=== PATIENT | female | born 1930 | race Caucasian/White ===

== ENCOUNTER 2017-02-01 18:02 | Inpatient (IN) | payer OTHER ==
[~2017-02-01] VITALS: Ht 165.1 cm; Wt 83.9 kg
[~2017-02-01 18:02] MED LIST: ATIVAN2 MG PO; CALCIUM CARB1 TABLET PO; Calcium Carbonate/Vi PO; DONEPEZIL HCL5 MG PO; GLUCOPHAGE500 MG PO; Glucophage PO; LEVOTHYROXINE100 MCG PO; LEXAPRO10 MG PO; LORAZEPAM2 MG PO; Levothroid,Synthroid PO; NAMENDA10 MG PO; NEXIUM40 MG PO; OYST-CAL D, OS500 M1 PO; PANTOPRAZOLE SO40 MG PO; PLAVIX75 MG PO; SYNTHROID100 MCG PO; SYNTHROID112 MCG PO; Tylenol Regular Stre PO; Xanax PO; Zocor PO
[2017-02-01 18:23] LABS: EOSINOPHIL (%) 0 % (0-5); HEMATOCRIT 33.9 % (36.0-46.0); IMMATURE GRANULOCYTE (%) 0.5 % (0.0-0.7); IMMATURE GRANULOCYTE COUNT 0.1 K/uL; INSTRUMENT ABS NEUTROPHIL CT 19.6 K/uL; LYMPHOCYTE COUNT 1.4 K/uL (1.0-2.8); MCH 32.3 PG (29.0-34.0); MCHC 33.9 G/DL (30.0-36.0); MCV 95.2 FL (83-99); MEAN PLAT.VOLUME 11.6 uM^3 (9.5-12.4); MONOCYTE (%) 3.6 % (3-12); MONOCYTE COUNT 0.8 K/uL (0-0.8); NEUTROPHIL (%) 89.6 % (45-76); NEUTROPHIL COUNT 19.6 K/uL (1.8-6.4); PLATELET COUNT 209 K/uL (156-360); RBC DIS.WIDTH-SD 42.2 % (39-53); RED BLOOD COUNT 3.56 M/uL (3.80-5.20); WHITE BLOOD COUNT 21.9 K/uL (4.1-10.2)
[2017-02-01 18:31] LABS: AMYLASE 44 IU/L (1-118); CHLORIDE 107 mEq/L (99-109); POTASSIUM 4.6 mEq/L (3.7-5.4); SODIUM 140 mEq/L (136-147)
[2017-02-01 18:33] LABS: GLUCOSE 306 mg/dL (70-99)
[2017-02-01 18:34] LABS: ANION GAP 11 MEQ/L (2-14)
[2017-02-01 18:36] LABS: SERUM ETHYL ALCOHOL < 10 mg/dL
[2017-02-01 18:37] LABS: GFR ESTIMATE (CALCULATED) 41 mL/min/
[2017-02-01 18:38] LABS: UREA NITROGEN (BUN) 59 mg/dL (9-23)
[2017-02-01 18:40] LABS: LIPASE 16 U/L (1.0-51.0)
[2017-02-01 19:42] LABS: ADD MIUA? YES; BILIRUBIN NEGATIVE; BLOOD LARGE; COLOR YELLOW ((YELLOW)); GLUCOSE (STRIP) >=500; KETONES 20; LEUKOCYTES NEGATIVE; NITRITE NEGATIVE; PROTEIN (STRIP) NEGATIVE; SPECIFIC GRAVITY 1.024 (1.000-1.030); UROBILINOGEN 0.2 MG/DL (0.2-1.0)
[2017-02-01 19:46] LABS: BACTERIA NONE SEEN /HPF; EPITHELIAL CELLS RARE /HPF; MUCUS TRACE /LPF; RED BLOOD CELLS 0-5 /HPF (0-5); UCUL ADDED? NO; WHITE BLOOD CELLS 0-5 /HPF (0-5)
[2017-02-01 19:46] LABS: CK-MB 3.1 ng/mL (0.0-4.9)
[2017-02-01 19:49] LABS: CREATINE KINASE 63 IU/L (1-294); TOTAL CK 63 IU/L (1-294)
[2017-02-01 19:57] LABS: AMPHETAMINE NEGATIVE (500 ng/mL); BARBITURATES NEGATIVE (200 ng/mL); BENZODIAZEPINES NEGATIVE (150 ng/mL); COCAINE NEGATIVE (150 ng/mL); METHADONE NEGATIVE (200 ng/mL); METHAMPHETAMINE NEGATIVE (500 ng/mL); OPIATES (MORPHINE) NEGATIVE (100 ng/mL); OXYCODONE NEGATIVE (100 ng/mL); PHENCYCLIDINE NEGATIVE (25 ng/mL); PROPOXYPHENE NEGATIVE (300 ng/mL); THC CANNABINOIDS NEGATIVE (50 ng/mL); TRICYCLIC ANTIDEPRESSANTS NEGATIVE (300 ng/mL)
[2017-02-01 19:58] LABS: INTERNAL CONTROLS VALID? YES
[2017-02-01 20:35] LABS: INTER. NORMALIZED RATIO 1.2; PROTHROMBIN TIME 12.9 SEC (10.2-12.9)
[2017-02-01 20:38] LABS: PTT 28.8 SEC (25-37)
[2017-02-01] MEDS ORDERED: IRON325 M1 PO (21:21)
[2017-02-01] MEDS ORDERED: TRAMADOL HCL50 MG PO (21:22)
[2017-02-01] MEDS ORDERED: LEVEMIR FL100 UNIT/1 SC (21:23)
[2017-02-01] MEDS ORDERED: AMARYL4 MG PO (21:23)
[2017-02-01 23:03] LABS: HEMATOCRIT 31.9 % (36.0-46.0); MCV 94.7 FL (83-99)
[2017-02-01 23:21] LABS: TROP-I INTERPRETATION NEGATIVE; TROPONIN-I 0.01 ng/mL (0.0-0.30)
[2017-02-02] VITALS (8 sets, daily range): BP systolic 110–129; BP diastolic 53–60
[2017-02-02 00:39] LABS: POINT-OF-CARE METER ID UU14117124
[2017-02-02 06:48] LABS: POINT-OF-CARE METER ID UU14188577
[2017-02-02 07:06] LABS: HEMATOCRIT 31.3 % (36.0-46.0); MCH 32.1 PG (29.0-34.0); MCHC 32.9 G/DL (30.0-36.0); MCV 97.5 FL (83-99); MEAN PLAT.VOLUME 11.8 uM^3 (9.5-12.4); PLATELET COUNT 194 K/uL (156-360); RBC DIS.WIDTH-CV 12.4 % (11.8-14.6); RBC DIS.WIDTH-SD 43.6 % (39-53); RED BLOOD COUNT 3.21 M/uL (3.80-5.20); WHITE BLOOD COUNT 15.6 K/uL (4.1-10.2)
[2017-02-02 07:28] LABS: ALKALINE PHOSPHATASE 38 IU/L (3-129); ANION GAP 5 MEQ/L (2-14); CHLORIDE 106 MEQ/L (99-109); GFR ESTIMATE (CALCULATED) 41 mL/min/; GLUCOSE 190 mg/dL (70-99); IRON 59 MCG/DL (35-150); POTASSIUM 4.1 MEQ/L (3.7-5.4); SAMPLE HEMOLYSIS CHECK 0; SAMPLE ICTERIC CHECK 0; SAMPLE LIPEMIA CHECK 0; SODIUM 143 MEQ/L (136-147); TOTAL BILIRUBIN 0.4 MG/DL (0.0-1.0); TROP-I INTERPRETATION NEGATIVE; TROPONIN-I 0.07 ng/mL (0.0-0.30); UREA NITROGEN (BUN) 51 mg/dL (9-23)
[2017-02-02 07:41] LABS: Estimated Average Glucose 189 mg/dL (70-123); HEMOGLOBIN A1c (GLYCOHEMOGLOB) 8.2 % HGB (Below 5.7)
[2017-02-02 08:05] LABS: FERRITIN 64 NG/ML (10-291)
[2017-02-02 11:07] LABS: POINT-OF-CARE METER ID UU14188577
[2017-02-02 16:01] LABS: POINT-OF-CARE METER ID UU14188577
[2017-02-03 00:10] LABS: TROP-I INTERPRETATION NEGATIVE; TROPONIN-I 0.03 ng/mL (0.0-0.30)
[2017-02-03 03:29] VITALS: BP 135/60
[2017-02-03 06:31] LABS: POINT-OF-CARE METER ID UU14117124
[2017-02-03 07:01] LABS: BASOPHIL COUNT 0.1 K/uL (0-0.1); EOSINOPHIL (%) 1.3 % (0-5); EOSINOPHIL COUNT 0.1 K/uL (0-0.3); HEMATOCRIT 29.6 % (36.0-46.0); IMMATURE GRANULOCYTE (%) 0.9 % (0.0-0.7); IMMATURE GRANULOCYTE COUNT 0.1 K/uL; LYMPHOCYTE COUNT 2.1 K/uL (1.0-2.8); MCH 33.1 PG (29.0-34.0); MCHC 33.4 G/DL (30.0-36.0); MEAN PLAT.VOLUME 12.2 uM^3 (9.5-12.4); MONOCYTE (%) 8.3 % (3-12); MONOCYTE COUNT 0.9 K/uL (0-0.8); NEUTROPHIL (%) 67.9 % (45-76); PLATELET COUNT 184 K/uL (156-360); RBC DIS.WIDTH-CV 12.6 % (11.8-14.6); RBC DIS.WIDTH-SD 45.3 % (39-53); RED BLOOD COUNT 2.99 M/uL (3.80-5.20); WHITE BLOOD COUNT 10.3 K/uL (4.1-10.2)
[2017-02-03 07:26] LABS: ANION GAP 4 MEQ/L (2-14); CHLORIDE 107 MEQ/L (99-109); GFR ESTIMATE (CALCULATED) 50 mL/min/; SAMPLE HEMOLYSIS CHECK 0; SAMPLE ICTERIC CHECK 0; SAMPLE LIPEMIA CHECK 0; SODIUM 143 MEQ/L (136-147); UREA NITROGEN (BUN) 35 mg/dL (9-23)
[2017-02-03 07:28] LABS: GLUCOSE 103 mg/dL (70-99)
[2017-02-03 07:54] VITALS: BP 132/61
[2017-02-03 11:47] VITALS: BP 133/62
[2017-02-03 16:40] VITALS: BP 135/61
[2017-02-03 19:42] VITALS: BP 133/61
[2017-02-03 20:19] LABS: POINT-OF-CARE METER ID UU14117124
[2017-02-03 21:51] LABS: POINT-OF-CARE METER ID UU13113675
[2017-02-03 22:46] VITALS: BP 161/73
[2017-02-04 03:21] VITALS: BP 123/60
[2017-02-04 06:53] LABS: POINT-OF-CARE METER ID UU14188577
[2017-02-04 08:11] VITALS: BP 116/80
[2017-02-04 12:29] LABS: POINT-OF-CARE METER ID UU14208753
[2017-02-04 16:04] VITALS: BP 116/56
[2017-02-04 20:00] VITALS: BP 141/63
[2017-02-04 21:43] LABS: POINT-OF-CARE METER ID UU14208753
[2017-02-04 23:51] VITALS: BP 130/66
[2017-02-05 04:11] VITALS: BP 142/73
[2017-02-05 06:36] LABS: POINT-OF-CARE METER ID UU14117124
[2017-02-05 07:33] LABS: HEMATOCRIT 30.7 % (36.0-46.0); MCH 33.2 PG (29.0-34.0); MCHC 34.5 G/DL (30.0-36.0); MCV 96.2 FL (83-99); MEAN PLAT.VOLUME 12.4 uM^3 (9.5-12.4); NRBC (%) 0.2 /100 WBC (0-0); PLATELET COUNT 190 K/uL (156-360); RBC DIS.WIDTH-CV 12.7 % (11.8-14.6); RBC DIS.WIDTH-SD 43.5 % (39-53); RED BLOOD COUNT 3.19 M/uL (3.80-5.20); WHITE BLOOD COUNT 8.9 K/uL (4.1-10.2)
[2017-02-05 07:49] LABS: ANION GAP 8 MEQ/L (2-14); CHLORIDE 106 MEQ/L (99-109); POTASSIUM 4.1 MEQ/L (3.7-5.4); SAMPLE HEMOLYSIS CHECK 0; SAMPLE ICTERIC CHECK 0; SAMPLE LIPEMIA CHECK 0; SODIUM 142 MEQ/L (136-147)
[2017-02-05 07:55] LABS: GFR ESTIMATE (CALCULATED) 56 mL/min/; GLUCOSE 208 mg/dL (70-99); UREA NITROGEN (BUN) 16 mg/dL (9-23)
[2017-02-05 08:20] VITALS: BP 139/63
[2017-02-05 12:18] LABS: POINT-OF-CARE METER ID UU14117124
[2017-02-05 12:31] VITALS: BP 166/72
[2017-02-05] MEDS ORDERED: PROTONIX40 MG PO (13:24)
[2017-02-05] MEDS ORDERED: TRAMADOL HCL50 MG PO (13:36)
[2017-02-05] MEDS ORDERED: ENDOCET 5-3251 EACH PO (13:36)
[2017-02-05] MEDS ORDERED: ASPIRIN325 MG PO (13:40)
== END 2017-02-05 16:15 | DRG 493 ==
LOC: TRA 18:02 → 3EAST 21:54 → EDOF 21:54 → ENRESERV 21:55 → 3EAST 23:44
PROVIDERS: Emergency Medicine; Hospitalist; Internal Medicine; Student in an Organized Health Care Education/Training Program
PROC: 0QSK04Z Reposition Left Fibula with Internal Fixation Device, Open Approach (ICD-10-PCS; principal; 2017-02-03)
DX: S82.842A Displaced bimalleolar fracture of left lower leg, initial encounter for closed fracture (principal); N17.9 Acute kidney failure, unspecified; F33.9 Major depressive disorder, recurrent, unspecified; K92.2 Gastrointestinal hemorrhage, unspecified; M84.48XA Pathological fracture, other site, initial encounter for fracture; F05 Delirium due to known physiological condition; N18.3 Chronic kidney disease, stage 3 (moderate); W01.0XXA Fall on same level from slipping, tripping and stumbling without subsequent striking against object, initial encounter; F03.90 Unspecified dementia, unspecified severity, without behavioral disturbance, psychotic disturbance, mood disturbance, and anxiety; I50.9 Heart failure, unspecified; F41.8 Other specified anxiety disorders; E11.22 Type 2 diabetes mellitus with diabetic chronic kidney disease; I65.21 Occlusion and stenosis of right carotid artery; E03.9 Hypothyroidism, unspecified; E27.8 Other specified disorders of adrenal gland; K11.8 Other diseases of salivary glands; D64.9 Anemia, unspecified; K57.30 Diverticulosis of large intestine without perforation or abscess without bleeding; E86.0 Dehydration; S99.912A Unspecified injury of left ankle, initial encounter; E66.9 Obesity, unspecified; Z68.30 Body mass index [BMI] 30.0-30.9, adult; Y92.019 Unspecified place in single-family (private) house as the place of occurrence of the external cause; Z79.02 Long term (current) use of antithrombotics/antiplatelets; Z88.5 Allergy status to narcotic agent; Z79.82 Long term (current) use of aspirin; Z79.4 Long term (current) use of insulin; Z86.73 Personal history of transient ischemic attack (TIA), and cerebral infarction without residual deficits; Z87.891 Personal history of nicotine dependence; Z87.11 Personal history of peptic ulcer disease; Z88.0 Allergy status to penicillin
CPT/HCPCS: 70450; 70551; 71010; 71260; 72125; 73600; 74177; 76000; 80048; 80048 91; 80053; 81003; 82150; 82272; 82550; 82553; 82565; 82728; 82948; 83036; 83540; 83605; 83630; 83690; 84466; 84484; 84520; 85014; 85018; 85025; 85025 91; 85027; 85610; 85730; 86850; 86900; 86901; 87177; 87493; 90686; 93005; 93306; 93880; 94799; 97530 GP; 99281; 99285; C1713; C9113; G0008; G0480; J0690; J1815; J2270; J2405; J3010; J7030; J7042; S0020; S0028

== ENCOUNTER 2017-12-18 15:20 | Inpatient (IN) | payer OTHER ==
[~2017-12-18] VITALS: Ht 165.1 cm; Wt 83.1 kg
[~2017-12-18 15:20] MED LIST changes: +AMARYL4 MG PO; +ASPIRIN325 MG PO; +CALCIUM 600 +1 EAC4 PO; +ENDOCET 5-3251 EACH PO; +IRON325 M1 PO; +LEVEMIR FL100 UNIT/1 SC; -OYST-CAL D, OS500 M1 PO; +PROTONIX40 MG PO; +TRAMADOL HCL50 MG PO
[2017-12-18 16:36] LABS: BASOPHIL (%) 0.2 % (0-1); EOSINOPHIL (%) 0 % (0-5); HEMATOCRIT 31.8 % (36.0-46.0); HEMOGLOBIN 10.7 G/DL (11.9-15.5); IMMATURE GRANULOCYTE (%) 0.6 % (0.0-0.7); LYMPHOCYTE (%) 7.6 % (15-42); LYMPHOCYTE COUNT 0.9 K/uL (1.0-2.8); MCH 31.4 PG (29.0-34.0); MCHC 33.6 G/DL (30.0-36.0); MCV 93.3 FL (83-99); MONOCYTE (%) 2.5 % (3-12); MONOCYTE COUNT 0.3 K/uL (0-0.8); NEUTROPHIL (%) 89.1 % (45-76); PLATELET COUNT 264 K/uL (156-360); RBC DIS.WIDTH-CV 12.4 % (11.8-14.6); RBC DIS.WIDTH-SD 42.1 % (39-53); RED BLOOD COUNT 3.41 M/uL (3.80-5.20); WHITE BLOOD COUNT 12.4 K/uL (4.1-10.2)
[2017-12-18 16:51] LABS: ALBUMIN 3.1 g/dL (3.2-4.8); CHLORIDE 103 mEq/L (99-109); POTASSIUM 4.5 mEq/L (3.7-5.4); SODIUM 137 mEq/L (136-147)
[2017-12-18 16:53] LABS: GLUCOSE 364 mg/dL (70-99); TOTAL PROTEIN 5.4 g/dL (6.4-8.3)
[2017-12-18 16:55] LABS: TOTAL BILIRUBIN 0.4 mg/dL (0.0-1.0)
[2017-12-18 16:57] LABS: ALKALINE PHOSPHATASE 55 IU/L (3-129); CREATININE 1.3 mg/dL (0.6-1.3); GFR ESTIMATE (CALCULATED) 41 mL/min/
[2017-12-18 16:58] LABS: UREA NITROGEN (BUN) 85 mg/dL (9-23)
[2017-12-18 16:59] LABS: AST (GOT) 13 IU/L (2-34)
[2017-12-18 17:00] LABS: ALT (GPT) 11 IU/L (3-49)
[2017-12-18 18:49] LABS: APPEARANCE CLEAR ((CLEAR)); BILIRUBIN NEGATIVE; BLOOD LARGE; COLOR STRAW ((YELLOW)); GLUCOSE (STRIP) >=500; KETONES 20; LEUKOCYTES LARGE; NITRITE NEGATIVE; PROTEIN (STRIP) NEGATIVE; SPECIFIC GRAVITY 1.018 (1.000-1.030); UROBILINOGEN 0.2 MG/DL (0.2-1.0)
[2017-12-18 19:01] LABS: BACTERIA 2+ /HPF; EPITHELIAL CELLS 1+ /HPF; MUCUS NONE SEEN /LPF; RED BLOOD CELLS 0-5 /HPF (0-5); UCUL ADDED? YES; WHITE BLOOD CELLS TNTC /HPF (0-5)
[2017-12-18 20:15] VITALS: BP 143/69
[2017-12-18] MEDS ORDERED: ERYTHROMYC1 APPLICAT LEFT EYE (20:18)
[2017-12-18] MEDS ORDERED: DONEPEZIL HCL10 MG PO (20:19)
[2017-12-18] MEDS ORDERED: GLIMEPIRIDE4 MG PO (20:20)
[2017-12-18] MEDS ORDERED: ESCITALOPRAM OX10 MG PO (20:20)
[2017-12-18] MEDS ORDERED: CLOPIDOGREL75 MG PO (20:20)
[2017-12-18] MEDS ORDERED: MEMANTINE HCL10 MG PO (20:20)
[2017-12-18 23:48] VITALS: BP 145/64
[2017-12-19 01:01] LABS: HEMATOCRIT 26.7 % (36.0-46.0); HEMOGLOBIN 9.2 G/DL (11.9-15.5); MCV 92.4 FL (83-99)
[2017-12-19 03:48] VITALS: BP 110/63
[2017-12-19 04:18] LABS: HEMATOCRIT 27.2 % (36.0-46.0); HEMOGLOBIN 9.3 G/DL (11.9-15.5); MCV 93.2 FL (83-99)
[2017-12-19 06:00] LABS: HEMATOCRIT 28.8 % (36.0-46.0); HEMOGLOBIN 9.5 G/DL (11.9-15.5); MCV 95.4 FL (83-99)
[2017-12-19 06:22] LABS: CHLORIDE 107 MEQ/L (99-109); CREATININE 1.1 MG/DL (0.6-1.3); GFR ESTIMATE (CALCULATED) 50 mL/min/; SODIUM 141 MEQ/L (136-147); UREA NITROGEN (BUN) 54 mg/dL (9-23)
[2017-12-19 06:23] LABS: GLUCOSE 169 mg/dL (70-99); POTASSIUM 3.5 MEQ/L (3.7-5.4)
[2017-12-19 07:01] VITALS: BP 131/60
[2017-12-19 11:34] VITALS: BP 118/58
[2017-12-19 12:46] LABS: HEMATOCRIT 28.5 % (36.0-46.0); HEMOGLOBIN 9.4 G/DL (11.9-15.5); MCV 95.3 FL (83-99)
[2017-12-19 16:04] VITALS: BP 121/72
[2017-12-19 19:59] VITALS: BP 127/64
[2017-12-19 20:10] LABS: HEMATOCRIT 27.5 % (36.0-46.0); HEMOGLOBIN 9.2 G/DL (11.9-15.5); MCV 95.2 FL (83-99)
[2017-12-19 23:56] VITALS: BP 126/59
[2017-12-20] VITALS (9 sets, daily range): BP systolic 118–169; BP diastolic 56–71
[2017-12-20 05:53] LABS: HEMATOCRIT 26.7 % (36.0-46.0); HEMOGLOBIN 8.8 G/DL (11.9-15.5); MCH 31.4 PG (29.0-34.0); MCV 95.4 FL (83-99); PLATELET COUNT 210 K/uL (156-360); RBC DIS.WIDTH-CV 12.5 % (11.8-14.6); RBC DIS.WIDTH-SD 43.2 % (39-53); WHITE BLOOD COUNT 9.7 K/uL (4.1-10.2)
[2017-12-21] VITALS: BP 148/67
[2017-12-21 06:19] LABS: HEMATOCRIT 36.7 % (36.0-46.0); MCH 30.4 PG (29.0-34.0); MCV 92.2 FL (83-99); PLATELET COUNT 219 K/uL (156-360); RBC DIS.WIDTH-CV 13.7 % (11.8-14.6); RBC DIS.WIDTH-SD 46.1 % (39-53); WHITE BLOOD COUNT 8.3 K/uL (4.1-10.2)
[2017-12-21 06:21] LABS: HEMOGLOBIN 12.1 G/DL (11.9-15.5); RED BLOOD COUNT 3.98 M/uL (3.80-5.20)
[2017-12-21 06:39] LABS: CHLORIDE 110 MEQ/L (99-109); GFR ESTIMATE (CALCULATED) 56 mL/min/; POTASSIUM 4.1 MEQ/L (3.7-5.4); SODIUM 146 MEQ/L (136-147)
[2017-12-21 06:50] LABS: GLUCOSE 100 mg/dL (70-99); UREA NITROGEN (BUN) 13 mg/dL (9-23)
[2017-12-21 07:14] VITALS: BP 142/65
[2017-12-21 15:07] VITALS: BP 135/73
[2017-12-22 00:16] VITALS: BP 156/71
[2017-12-22 07:37] VITALS: BP 150/66
[2017-12-22 08:31] LABS: HEMATOCRIT 34.9 % (36.0-46.0); HEMOGLOBIN 11.9 G/DL (11.9-15.5); MCV 91.4 FL (83-99)
[2017-12-22] MEDS ORDERED: PANTOPRAZOLE SO40 MG PO (11:43)
[2017-12-22 16:01] VITALS: BP 139/67
[2017-12-23 04:18] VITALS: BP 137/83
[2017-12-23 07:53] VITALS: BP 131/67
[2017-12-23 15:46] VITALS: BP 172/74
[2017-12-23 17:15] VITALS: BP 154/62
[2017-12-24 00:09] VITALS: BP 147/65
[2017-12-24 07:52] VITALS: BP 163/76
== END 2017-12-24 14:29 | DRG 378 ==
LOC: EME 15:20 → 5SOUTH 18:13 → EDOF 18:13 → ENRESERV 18:34 → 5SOUTH 20:12
PROVIDERS: Emergency Medicine; Hospitalist
DX: K27.4 Chronic or unspecified peptic ulcer, site unspecified, with hemorrhage (principal); D62 Acute posthemorrhagic anemia; N39.0 Urinary tract infection, site not specified; E87.6 Hypokalemia; E11.65 Type 2 diabetes mellitus with hyperglycemia; R15.9 Full incontinence of feces; I49.3 Ventricular premature depolarization; G30.9 Alzheimer's disease, unspecified; F02.80 Dementia in other diseases classified elsewhere, unspecified severity, without behavioral disturbance, psychotic disturbance, mood disturbance, and anxiety; G89.29 Other chronic pain; R91.1 Solitary pulmonary nodule; N28.1 Cyst of kidney, acquired; K44.9 Diaphragmatic hernia without obstruction or gangrene; K57.30 Diverticulosis of large intestine without perforation or abscess without bleeding; I10 Essential (primary) hypertension; E03.9 Hypothyroidism, unspecified; K21.9 Gastro-esophageal reflux disease without esophagitis; F32.9 Major depressive disorder, single episode, unspecified; F41.9 Anxiety disorder, unspecified; Z87.11 Personal history of peptic ulcer disease; Z86.73 Personal history of transient ischemic attack (TIA), and cerebral infarction without residual deficits; Z87.891 Personal history of nicotine dependence
CPT/HCPCS: 74176; 80048; 80053; 81003; 82948; 83605; 85014; 85018; 85025; 85027; 86850; 86900; 86901; 86920; 87086; 93005; 99281; 99285; C9113; J0744; J1815; J7030; J7040; P9016

== ENCOUNTER 2018-01-06 19:19 | Emergency (ER) | payer OTHER ==
[~2018-01-06] VITALS: Ht 165.1 cm; Wt 86.8 kg
[~2018-01-06 19:19] MED LIST changes: +CLOPIDOGREL75 MG PO; +DONEPEZIL HCL10 MG PO; +ERYTHROMYC1 APPLICAT LEFT EYE; +ESCITALOPRAM OX10 MG PO; +GLIMEPIRIDE4 MG PO; +MEMANTINE HCL10 MG PO
[2018-01-06 20:05] LABS: APPEARANCE CLEAR ((CLEAR)); BILIRUBIN NEGATIVE; BLOOD NEGATIVE; COLOR STRAW ((YELLOW)); GLUCOSE (STRIP) >=500; KETONES NEGATIVE; LEUKOCYTES NEGATIVE; NITRITE NEGATIVE; PROTEIN (STRIP) NEGATIVE; SPECIFIC GRAVITY 1.022 (1.000-1.030); UCUL ADDED? NO; UROBILINOGEN 0.2 MG/DL (0.2-1.0)
[2018-01-06 20:50] LABS: BASOPHIL (%) 0.6 % (0-1); BASOPHIL COUNT 0.1 K/uL (0-0.1); EOSINOPHIL (%) 1.9 % (0-5); EOSINOPHIL COUNT 0.2 K/uL (0-0.3); HEMATOCRIT 35.7 % (36.0-46.0); HEMOGLOBIN 11.4 G/DL (11.9-15.5); IMMATURE GRANULOCYTE (%) 0.4 % (0.0-0.7); LYMPHOCYTE (%) 17.3 % (15-42); LYMPHOCYTE COUNT 1.4 K/uL (1.0-2.8); MCH 31.2 PG (29.0-34.0); MCHC 31.9 G/DL (30.0-36.0); MCV 97.5 FL (83-99); MONOCYTE (%) 7.3 % (3-12); MONOCYTE COUNT 0.6 K/uL (0-0.8); NEUTROPHIL (%) 72.5 % (45-76); PLATELET COUNT 231 K/uL (156-360); RBC DIS.WIDTH-CV 14.3 % (11.8-14.6); RBC DIS.WIDTH-SD 51.1 % (39-53); RED BLOOD COUNT 3.65 M/uL (3.80-5.20); WHITE BLOOD COUNT 8.2 K/uL (4.1-10.2)
[2018-01-06 21:00] LABS: ALBUMIN 3.2 g/dL (3.2-4.8); CHLORIDE 102 mEq/L (99-109); POTASSIUM 4.8 mEq/L (3.7-5.4); SODIUM 137 mEq/L (136-147)
[2018-01-06 21:02] LABS: GLUCOSE 354 mg/dL (70-99); TOTAL PROTEIN 5.9 g/dL (6.4-8.3)
[2018-01-06 21:04] LABS: TOTAL BILIRUBIN 0.3 mg/dL (0.0-1.0)
[2018-01-06 21:06] LABS: ALKALINE PHOSPHATASE 129 IU/L (3-129); CREATININE 1.4 mg/dL (0.6-1.3); GFR ESTIMATE (CALCULATED) 38 mL/min/
[2018-01-06 21:08] LABS: AST (GOT) 19 IU/L (2-34); TROP-I INTERPRETATION NEGATIVE; TROPONIN-I < 0.01 ng/mL (0.0-0.30)
[2018-01-06 21:09] LABS: ALT (GPT) 23 IU/L (3-49)
[2018-01-06 21:13] LABS: UREA NITROGEN (BUN) 21 mg/dL (9-23)
[2018-01-06 21:50] LABS: LIPASE 100 U/L (1.0-51.0)
[2018-01-06] MEDS ORDERED: ULTRAM50 MG PO (22:56)
[2018-01-07 00:46] VITALS: BP 139/63
== END 2018-01-07 00:47 ==
LOC: EME → EDBD 19:19 → EME 19:19
PROVIDERS: Nurse Practitioner Family
DX: R07.89 Other chest pain (principal); K85.90 Acute pancreatitis without necrosis or infection, unspecified; E11.65 Type 2 diabetes mellitus with hyperglycemia; Z79.4 Long term (current) use of insulin; F03.90 Unspecified dementia, unspecified severity, without behavioral disturbance, psychotic disturbance, mood disturbance, and anxiety; F32.9 Major depressive disorder, single episode, unspecified; F41.9 Anxiety disorder, unspecified; Z86.73 Personal history of transient ischemic attack (TIA), and cerebral infarction without residual deficits; Z88.0 Allergy status to penicillin; Z87.891 Personal history of nicotine dependence; Z88.8 Allergy status to other drugs, medicaments and biological substances
CPT/HCPCS: 71046; 74177; 80053; 81003; 82948; 83690; 84484; 85025; 93005; 99281; 99285